=== PATIENT | female | born 1965 | race Caucasian/White ===

== ENCOUNTER → 2019-09-30 15:31 | Outpatient (CLI) | payer BC, SELFPAY ==
[2019-10-03 14:07] LABS: HPV Genotype 16, Aptima Negative (Negative)
[2019-10-03 17:58] LABS: HPV APTIMA, High Risk Positive (Negative); HPV Genotype 18,45 Aptima Negative (Negative)
== END ==
PROVIDERS: Visit Provider Obstetrics & Gynecology
DX: Z12.4 Encounter for screening for malignant neoplasm of cervix (principal)
CPT/HCPCS: 87624; 88175; G0145

== ENCOUNTER → 2019-11-05 17:22 | Outpatient (CLI) | payer BC, SELFPAY ==
--- NOTE | 2019-11-05 16:00 | ECC_PTH ---
PATIENT: MERCEDES GALAVIZ LOC: [facility] U#:[id number] AGE/SX: 59/F ROOM: RE11/05/[address]: Dr. Delaney Tatum MD : 1965 BED: DIS: SPEC #: [id number] RECD: 11/05/19 17:15 STATUS: ANEESH KELTON #: [id number] COLT: 11/05/19 16:[address]: Delaney Grimaldo DEPT: SURGICAL PATHOLOGY RECD BY: Larry Ruvalcaba Tissues: Endocervical Procedures: Surgery Specimen Level IV HEADER OPERATION: Colposcopy PRE-OP DIAGNOSIS: Postmenopausal; positive HR HPV TISSUE SUBMITTED: ECC MICROSCOPIC DIAGNOSIS Endocervix, curettings (cell block): Scant benign endocervical cells present. AM:lilli 11/07/19 MICROSCOPIC DESCRIPTION Slides are reviewed. GROSS DESCRIPTION Received in fixative is one container labeled with the patient's name and designated ECC. The specimen consists of The specimen consists of a scant amount of soft tissue. The specimen is totally submitted for cell block preparation. / AM:lilli 11/06/19 TC:5 CPT: 22397
== END ==
PROVIDERS: Referring Provider Obstetrics & Gynecology; Visit Provider Obstetrics & Gynecology
DX: Z78.0 Asymptomatic menopausal state (principal); A63.0 Anogenital (venereal) warts
CPT/HCPCS: 88305

== ENCOUNTER → 2020-10-04 11:38 | Outpatient (CLI) | payer BC, SELFPAY ==
[2020-10-09 03:07] LABS: HPV Genotype 16, Aptima Negative (Negative)
[2020-10-09 09:14] LABS: HPV APTIMA, High Risk Positive (Negative); HPV Genotype 18,45 Aptima Negative (Negative)
== END ==
PROVIDERS: Visit Provider Obstetrics & Gynecology
DX: Z12.4 Encounter for screening for malignant neoplasm of cervix (principal)
CPT/HCPCS: 87624; 88175; G0145

== ENCOUNTER → 2021-10-25 | Outpatient (CLI) | payer BC, SELFPAY ==
[2021-10-31 11:26] LABS: HPV Genotype 16, Aptima Negative (Negative)
[2021-10-31 18:08] LABS: HPV APTIMA, High Risk Positive (Negative); HPV Genotype 18,45 Aptima Negative (Negative)
== END | disposition home or self-care (01) ==
LOC: LABSPEC 10:42
PROVIDERS: Visit Provider Obstetrics & Gynecology
DX: Z12.4 Encounter for screening for malignant neoplasm of cervix (principal)
CPT/HCPCS: 87624; 88175; G0145

== ENCOUNTER → 2021-11-14 | Outpatient (CLI) | payer BC, SELFPAY ==
--- NOTE | 2021-11-14 | IMM_PTH ---
PATIENT: MERCEDES GALAVIZ LOC: [facility] U#:[id number] AGE/SX: 56/F ROOM: RE11/14/[address]: Dr. Delaney Tatum MD : 1965 BED: DIS: 11/14/2021 SPEC #: [id number] RECD: 11/15/21 11:31 STATUS: ANEESH REJames #: [id number] COLT: 11/14/21 00:[address]: Delaney Grimaldo DEPT: IMMUNOHISTOCHEMISTRY RECD BY: Jaimee Beltran Tissues: Endocervical Procedures: p16 (initial) KI-67 (add) PHYSICIAN & INSTITUTION [place] [id number] SPECIMEN INFORMATION: Tissue Source: Endocervical curettings Clinical Info: Normal, positive non 16/18, HRHPV 2 years Specimen Number: [id number] CPT code: 34248, 90078 METHODOLOGY: Deparaffinized sections of prefer/formalin-fixed tissue or PAP/DQ stained slides are incubated with monoclonal/polyclonal antibodies/oligonucleotide probes. Localization is made via biotin free immunoperoxidase method. Appropriate controls are performed and reacted as expected. Results on target cell population are indicated in the following table: RESULTS: ANTIBODY / CLONE RESULT P16 (E6H4) negative Ki-67 (30-9) positive, very low These tests were developed and their performance characteristics determined by [facility]. They may not have been cleared or approved by the U.S. Food and Drug Administration. The FDA has determined that such clearance or approval is not necessary. The above immunohistochemical/dualISH markers are ordered and reviewed by the Pathologist. INTERPRETATION: Endocervical curettings: Negative for dysplasia. ARNOLDO:lilli 11/16/2021
--- NOTE | 2021-11-14 | ECC_PTH ---
PATIENT: MERCEDES GALAVIZ [id number] AGE/SX: 56/F ROOM: RE11/14/[address]: Dr. Delaney Tatum MD : 1965 BED: DIS: 11/14/2021 SPEC #: [id number] RECD: 11/14/21 11:56 STATUS: ANEESH MELARA #: [id number] COLT: 11/14/21 00:[address]: Delaney Grimaldo DEPT: SURGICAL PATHOLOGY RECD BY: Larry Ruvalcaba Tissues: Endocervical Procedures: Surgery Specimen Level IV HEADER OPERATION: Colposcopy PRE-OP DIAGNOSIS: Normal, positive non 16/18, HRHPV 2 years TISSUE SUBMITTED: Endocervical curettings MICROSCOPIC DIAGNOSIS Endocervical curettings: Fragments of benign ecto- and endocervical epithelium, negative for dysplasia. See comment. ARNOLDO:lilli 11/15/2021 COMMENT Immunohistochemistry ([id number]) for surrogate HPV marker (p16) supports the above diagnosis. MICROSCOPIC DESCRIPTION Slides are reviewed. GROSS DESCRIPTION Received in fixative is one container labeled with the patient's name and designated endocervical curettings. The specimen consists of a scant amount of soft tissue. The specimen is totally submitted for cell block preparation. / SJ:lilli 11/14/2021 :5 CPT: 51161
== END | disposition home or self-care (01) ==
LOC: LABSPEC 11:50
PROVIDERS: Visit Provider Obstetrics & Gynecology
DX: Z11.51 Encounter for screening for human papillomavirus (HPV) (principal)
CPT/HCPCS: 88305; 88341; 88342

== ENCOUNTER → 2022-12-11 | Outpatient (CLI) | payer OTHER, SELFPAY ==
[2022-12-18 21:07] LABS: HPV APTIMA, High Risk Positive (Negative); HPV Genotype 16, Aptima Negative (Negative); HPV Genotype 18,45 Aptima Negative (Negative)
== END | disposition home or self-care (01) ==
PROVIDERS: Visit Provider Student in an Organized Health Care Education/Training Program
DX: Z12.4 Encounter for screening for malignant neoplasm of cervix (principal)
CPT/HCPCS: 87624; 88175; G0145

== ENCOUNTER → 2022-12-27 | Outpatient (CLI) | payer OTHER, SELFPAY ==
--- NOTE | 2022-12-27 | IMM_PTH ---
PATIENT: MERCEDES GALAVIZ [facility] U#:[id number] AGE/SX: 57/F ROOM: RE12/27/[address]: Dr. Shannan Freeman, : 1965 BED: DIS: 12/27/2022 SPEC #: [id number] RECD: 12/29/22 12:58 STATUS: ANEESH KELTON #: [id number] COLT: 12/27/22 00:[address]: Shannan Freeman DEPT: IMMUNOHISTOCHEMISTRY RECD BY: Jaimee Beltran Tissues: A - Uterine cervix, NOS B - Endocervical Procedures: p16 (initial) KI-67 (add) PHYSICIAN & [place] [id number] SPECIMEN INFORMATION: Tissue Source: A - Cervix 4, 8 & 12 o'clock, B - Endocervical curettings Clinical Info: R87.810 Specimen Number: [id number] A & B CPT code: 56944 x2, 76638 x2 METHODOLOGY: Deparaffinized sections of prefer/formalin-fixed tissue or PAP/DQ stained slides are incubated with monoclonal/polyclonal antibodies/oligonucleotide probes. Localization is made via biotin free immunoperoxidase method. Appropriate controls are performed and reacted as expected. Results on target cell population are indicated in the following table: RESULTS: ANTIBODY / CLONE RESULT Block A P16 (E6H4) positive, focal, patchy Ki-67 (30-9) positive, low Block B P16 (E6H4) positive, focal Ki-67 (30-9) positive, low These tests were developed and their performance characteristics determined by [facility]. They may not have been cleared or approved by the U.S. Food and Drug Administration. The FDA has determined that such clearance or approval is not necessary. The above immunohistochemical/dualISH markers are ordered and reviewed by the Pathologist. INTERPRETATION: A. Cervix 4, 8 & 12 o'clock, biopsy: Focal HPV change present. B. Endocervical curettings: Focal HPV change present. AM:lilli 01/01/2023
--- NOTE | 2022-12-27 | CER_PTH ---
PATIENT: MERCEDES GALAVIZ LOC: [facility]#:[id number] AGE/SX: 57/F ROOM: RE12/27/[address]: Dr. Shannan Freeman, : 1965 BED: DIS: 12/27/2022 SPEC #: [id number] RECD: 12/27/22 09:45 STATUS: ANEESH KELTON #: [id number] COLT: 12/27/22 00:[address]: Shannan Freeman DEPT: SURGICAL PATHOLOGY RECD BY: Sun Renner Tissues: A - Uterine cervix, NOS B - Endocervical Procedures: Surgery Specimen Level IV HEADER OPERATION: Colposcopy PRE-OP DIAGNOSIS: R87.810 TISSUE SUBMITTED: Vanessa Wilson, 4, 8, 12 o'clock, B - Endocervical curettings MICROSCOPIC DIAGNOSIS A. Cervix 4, 8, 12 o'clock, biopsy: Fragments of benign ectocervical mucosa with atrophic changes. Focal HPV change present. See comment. B. Endocervical curettings: Fragment of benign squamous epithelium with atrophic changes. Focal HPV change present. A few fragments of benign endocervical epithelium. See comment. ARNOLDO:illli 12/29/2022 COMMENT A & B. Immunohistochemistry ([id number]) for surrogate HPV marker (p16) supports the above diagnosis. Case has been reviewed in consultation with Dr. Menezes who concurs with the above diagnosis. IDC:ARNOLDO MICROSCOPIC DESCRIPTION Slides are reviewed. GROSS DESCRIPTION A - Received in fixative is one container labeled with the patient's name and designated cervix 4, 8, 12 o'clock. The specimen consists of multiple irregular fragments of light whitt soft tissue that in aggregate measure 0.6 x 0.3 x 0.1 cm. The specimen is totally submitted in one cassette. B - Received in fixative is one container labeled with the patient's name and designated ECC. The specimen consists of a scant amount of soft tissue. The specimen is totally submitted for cell block preparation. / ARNOLDO:lilli 12/28/2022 TC:5 CPT: 96619 x2
== END | disposition home or self-care (01) ==
LOC: LABSPEC 14:05
PROVIDERS: Visit Provider Student in an Organized Health Care Education/Training Program
DX: R87.810 Cervical high risk human papillomavirus (HPV) DNA test positive (principal)
CPT/HCPCS: 88305; 88341; 88342